=== PATIENT | male | born 1980 | race Caucasian/White ===

== ENCOUNTER 2016-10-28 09:03 | Emergency (ER) | payer BC, OTHER ==
[2016-10-28 09:25] VITALS: BP 144/98
--- NOTE | 2016-10-28 09:30 | UC ---
UC General HPI - HPI Summary HPI Summary: Patient ran out of Lettuce and is worried because he is experiencing sweating from his anus. It is keeping him from work and social events. PCP closed the office and he is in search of new provider. this has been going on for 2 weeks, - History of Current Complaint Stated Complaint: MED REFILL,SWEATINESS Time Seen by Provider: 10/28/16 09:10 Hx Obtained From: Patient Onset/Duration: Sudden Onset, Lasting Weeks Timing: Constant Onset Severity: Mild Current Severity: Mild - Allergy/Home Medications Allergies/Adverse Reactions: Allergies Allergy/AdvReac Type Severity Reaction Status Date / Time No Known Allergies Allergy Verified 11/17/12 07:33 PMH/Surg Hx/FS Hx/Imm Hx Previously Healthy: Yes Endocrine History Of: Denies: Diabetes Cardiovascular History Of: Denies: Cardiac Disorders Respiratory History Of: Denies: Asthma - Surgical History Surgical History: Yes Surgery Procedure, Year, and Place: Appendectomy - Family History Known Family History: Positive: Other - anxiety - Social History Substance Use Type: Marijuana Review of Systems Constitutional: Negative Skin: Other - excessive sweating around his anus Eyes: Negative ENT: Negative Respiratory: Negative Cardiovascular: Negative Gastrointestinal: Negative Genitourinary: Negative Motor: Negative Neurovascular: Negative Musculoskeletal: Negative Neurological: Negative Psychological: Anxious All Other Systems Reviewed And Are Negative: Yes Physical Exam Triage Information Reviewed: Yes Appearance: Well-Appearing, No Pain Distress, Well-Nourished, Other: - anxious Vital Signs Reviewed: Yes Eye Exam: Normal Eyes: Positive: Conjunctiva Clear ENT Exam: Normal ENT: Positive: Normal ENT inspection, Hearing grossly normal, Pharynx normal, TMs normal Dental Exam: Normal Neck exam: Normal Neck: Positive: Supple, Nontender, No Lymphadenopathy Respiratory Exam: Normal Respiratory: Positive: Chest non-tender, Lungs clear, Normal breath sounds Cardiovascular Exam: Normal Cardiovascular: Positive: RRR, No Murmur, Pulses Normal Abdominal Exam: Normal Abdomen Description: Positive: Nontender, No Organomegaly, Soft Bowel Sounds: Positive: Present Musculoskeletal Exam: Normal Musculoskeletal: Positive: Strength Intact, ROM Intact, No Edema Neurological Exam: Normal Neurological: Positive: Alert, Muscle Tone Normal Psychological: Positive: Other: - patient is anxious and is very concerned that he may have something going on due to his sweating Skin Exam: Normal - no breakdown of skin noted, no redness or swelling Course/Dx - Course Course Of Treatment: hx obtained, exam performed, meds reviewed, prescribed refill for lexapro as well as list of PCP to call. Educated on ways to manage his discomfort. - Differential Dx - Multi-Symptom Provider Diagnoses: anxiety. diaphoresis Discharge - Discharge Plan Condition: Stable Disposition: HOME Prescriptions: Escitalopram (NF) [Lexapro (NF)] 10 mg PO BEDTIME #30 tab Patient Education Materials: Anxiety (ED) Additional Instructions: Resume your lexapro tonight. If your sweating continues I encourage you to try tucks pads for cooling, they can be applied directly to the rectum. Stay hydrated with increased fluids.
== END 2016-10-28 10:00 | disposition home or self-care (01) ==
LOC: UCCORT 09:03
DX: F41.9 Anxiety disorder, unspecified (principal); R61 Generalized hyperhidrosis; Z76.0 Encounter for issue of repeat prescription; F12.90 Cannabis use, unspecified, uncomplicated
CPT/HCPCS: 99201; G0463

== ENCOUNTER 2017-08-12 17:38 | Emergency (ER) | payer OTHER ==
--- NOTE | 2017-08-12 18:39 | UC ---
FLU HPI - HPI Summary HPI Summary: 36 YEAR OLD MALE PRESENTS WITH COMPLAINS OF SOFT TISSUE SWELLING UNDER LEFT AXILLA. ON A SIDE NOTE HE ALSO DISCUSSED HIS FEAR OF SMELLING. - History of Current Complaint Stated Complaint: FATIGUE Time Seen by Provider: 08/12/17 18:38 Hx Obtained From: Patient Onset/Duration: Lasting Weeks Severity Currently: Moderate Severity Initially: Moderate Associated Signs & Symptoms: Positive: Negative - Allergy/Home Medications Allergies/Adverse Reactions: Allergies Allergy/AdvReac Type Severity Reaction Status Date / Time No Known Allergies Allergy Verified 08/12/17 18:44 Home Medications: Home Medications Linaclotide [Linzess] 72 mcg PO DAILY 08/12/17 [History Confirmed 08/12/17] PMH/Surg Hx/FS Hx/Imm Hx Previously Healthy: Yes - Surgical History Surgical History: Yes Surgery Procedure, Year, and Place: Appendectomy - Family History Known Family History: Positive: Other - anxiety - Social History Alcohol Use: None Substance Use Type: Marijuana Substance Use Comment - Amount & Last Used: Occasional Smoking Status (MU): Heavy Every Day Tobacco Smoker Amount Used/How Often: 1 pack per day Length of Time of Smoking/Using Tobacco: started 26yrs old Have You Smoked in the Last Year: Yes Review of Systems Constitutional: Negative Skin: Other - SOFT TISSUE SWELLING UNDER LEFT ARM Eyes: Negative ENT: Negative Respiratory: Negative Cardiovascular: Negative Gastrointestinal: Negative Genitourinary: Negative Motor: Negative Neurovascular: Negative Musculoskeletal: Negative Neurological: Negative Psychological: Negative All Other Systems Reviewed And Are Negative: Yes Physical Exam Triage Information Reviewed: Yes Vital Signs Reviewed: Yes Eye Exam: Normal ENT Exam: Normal Dental Exam: Normal Neck exam: Normal Neck: Positive: 1 Respiratory Exam: Normal Cardiovascular Exam: Normal Abdominal Exam: Normal Musculoskeletal Exam: Normal Neurological Exam: Normal Psychological Exam: Normal Skin: Positive: Other - SOFT TISSUE SWELLING UNDER LEFT ARM Flu Course/Dx - Differential Dx/Diagnosis Provider Diagnoses: FATIGUE. LEFT AXILLA SOFT TISSUE MASS Discharge - Discharge Plan Condition: Stable Disposition: HOME Patient Education Materials: Lymphadenopathy (ED) Forms: *Work Release Referrals: Halley Michelle [Medical Doctor] - No Primary Care Phys,NOPJOHN [Medical Doctor] -
[2017-08-12 18:44] VITALS: BP 149/97
== END 2017-08-12 19:58 | disposition home or self-care (01) ==
LOC: UCCORT 17:38
DX: R53.83 Other fatigue (principal); R22.9 Localized swelling, mass and lump, unspecified; F17.210 Nicotine dependence, cigarettes, uncomplicated
CPT/HCPCS: 99211; G0463

== ENCOUNTER 2018-04-15 09:27 | Emergency (ER) | payer OTHER ==
[2018-04-15 09:59] VITALS: BP 143/94
--- NOTE | 2018-04-15 10:18 | UC ---
Ear Complaint HPI - HPI Summary HPI Summary: Patient presents with decreased hearing from his right ear that he presumes a cerumen impaction. Patient has had similar problems before. Last irrigation was approximately 2 years ago. Patient works in a factory and wears earplugs. Patient states he knows his pushes the wax in. Patient denies any pain. No sinus pain no sore throat. Patient states he just cannot hear out of his right ear. Patient's medications reviewed this visit - History of Current Complaint Chief Complaint: UCEar Stated Complaint: RIGHT EAR COMPLAINT Time Seen by Provider: 04/15/18 10:13 Hx Obtained From: Patient Onset/Duration: Gradual Onset Severity Currently: None Pain Intensity: 0 - Allergies/Home Medications Allergies/Adverse Reactions: Allergies Allergy/AdvReac Type Severity Reaction Status Date / Time No Known Allergies Allergy Verified 08/12/17 18:44 PMH/Surg Hx/FS Hx/Imm Hx Previously Healthy: Yes - Surgical History Surgical History: Yes Surgery Procedure, Year, and Place: Appendectomy - Family History Known Family History: Positive: Other - anxiety - Social History Occupation: Employed Full-time Lives: With Family Alcohol Use: None Substance Use Type: Marijuana Substance Use Comment - Amount & Last Used: Occasional Smoking Status (MU): Heavy Every Day Tobacco Smoker Amount Used/How Often: 1 pack per day Length of Time of Smoking/Using Tobacco: started 26yrs old Have You Smoked in the Last Year: Yes Review of Systems ENT: Other - Decreased hearing right ear All Other Systems Reviewed And Are Negative: Yes Physical Exam - Summary Physical Exam Summary: Vital Signs Reviewed: Yes A+Ox3, no distress Eyes: Conjunctiva Clear, RADNALL. EOM intact and full ENT: Hearing grossly normal TM x 2 obscured by copious firm cerumen unable to visualize TM. mmoist, uvula midline, no exudate, no erythema Neck: Positive: Supple Respiratory: Positive: No respiratory distress, No accessory muscle use + CTA throughout no w/r Cardiovascular: RRR nl s1, s2 no m/r Musculoskeletal Exam: MAGDALENO x 4 without difficulty Strength Intact, ROM Intact Neurological: Positive: Alert, + sensation throughout Psychological: Positive: Normal Response To Family is Triage Information Reviewed: Yes Vital Signs: Initial Vital Signs Temp 98.3 F 04/15/18 09:53 Pulse 74 04/15/18 09:53 Resp 14 04/15/18 09:53 BP 143/94 04/15/18 09:53 Pulse Ox 99 04/15/18 09:53 Re-Evaluation - Re-Evaluation First Eval Change: Improved - Following combination of both irrigation as well as curette removal both canals free of cerumen. TMs visualized and intact. No concern for infection. Recommend patient use earmuffs hearing protection as opposed to earplugs. Recommend patient use prescription Debrox 3 times a day. Patient also encourages [id number] products for a wax removal. Patient encouraged to return with any questions or concerns. Patient states comfort agreement with plan. Patient's blood pressure was mildly elevated recommend follow-up with his primary Ear Complaint Course/Dx - Course Course Of Treatment: Patient with significant cerumen impaction bilateral ears. Unable to visualize tympanic membrane on either side. We'll irrigate with hydroperoxide. Unable to manually remove. Patient comfortable in agreement with plan. - Differential Dx/Diagnosis Provider Diagnoses: Cerumen impaction bilaterally Discharge - Sign-Out/Discharge Documenting (check all that apply): Patient Departure All imaging exams completed and their final reports reviewed: No Studies - Discharge Plan Condition: Stable Disposition: HOME Prescriptions: Carbamide Peroxide 6.5% OTIC* [DEBROX 6.5% Otic*] 5 drop BOTH EARS EVERY OTHER DAY #1 bottle Patient Education Materials: Cerumen Impaction (ED) Referrals: Do Bhagat MD [Primary Care Provider] - Additional Instructions: Use ear softening drops 3 times a week starting next week consider switching to ear muffs as opposed to ear plugs for hearing protection at work Consider scheduling appointments every 6-8 weeks for ear flushing Okay to trial over the counter ear flushing kits for the shower use contact your doctor or return here with questions or concerns - Billing Disposition and Condition Condition: STABLE Disposition: Home
== END 2018-04-15 11:36 | disposition home or self-care (01) ==
LOC: UCCORT 09:27
DX: H61.23 Impacted cerumen, bilateral (principal); F17.210 Nicotine dependence, cigarettes, uncomplicated
CPT/HCPCS: 99213; G0463

== ENCOUNTER 2019-06-26 20:08 | Emergency (ER) | payer OTHER ==
[2019-06-26 20:20] VITALS: BP 146/78
--- NOTE | 2019-06-26 20:45 | UC ---
Skin Complaint HPI - HPI Summary HPI Summary: for past 3 months, lump on left chin area, states losing weight recently. Concerned with tonsils - History of Current Complaint Chief Complaint: UCGeneralIllness Time Seen by Provider: 06/26/19 20:32 Stated Complaint: THROAT COMPLAINT Hx Obtained From: Patient Onset/Duration: Sudden Onset, Lasting Weeks Skin Exposure Onset/Duration: Weeks Ago Timing: Constant Onset Severity: Mild Current Severity: Mild Pain Intensity: 1 Character: Raised - Allergy/Home Medications Allergies/Adverse Reactions: Allergies Allergy/AdvReac Type Severity Reaction Status Date / Time No Known Allergies Allergy Verified 06/26/19 20:20 Home Medications: Home Medications NK [No Home Medications Reported] 06/26/19 [History Confirmed 06/26/19] PMH/Surg Hx/FS Hx/Imm Hx Previously Healthy: Yes - Surgical History Surgical History: Yes Surgery Procedure, Year, and Place: Appendectomy - Family History Known Family History: Positive: Other - anxiety - Social History Alcohol Use: None Substance Use Type: Marijuana Substance Use Comment - Amount & Last Used: Occasional Smoking Status (MU): Heavy Every Day Tobacco Smoker Amount Used/How Often: 1 pack per day Length of Time of Smoking/Using Tobacco: started 26yrs old Have You Smoked in the Last Year: Yes Review of Systems All Other Systems Reviewed And Are Negative: Yes Skin: Positive: Other - cyst Is Patient Immunocompromised?: No Physical Exam Triage Information Reviewed: Yes Appearance: Well-Appearing, Well-Nourished, Pain Distress Vital Signs: Initial Vital Signs Temp 98.8 F 06/26/19 20:14 Pulse 77 06/26/19 20:14 Resp 16 06/26/19 20:14 BP 146/78 06/26/19 20:14 Pulse Ox 99 06/26/19 20:14 Vital Signs Reviewed: Yes Eye Exam: Normal ENT Exam: Normal ENT: Positive: Pharynx normal, TMs normal Dental Exam: Normal Neck: Positive: Other: - mild lymphadenopathy on right side. dermal cyst noted on left side Respiratory Exam: Normal Cardiovascular Exam: Normal Abdominal Exam: Normal Bowel Sounds: Positive: Present Musculoskeletal Exam: Normal Neurological Exam: Normal Psychological Exam: Normal Skin Exam: Normal Course/Dx - Course Course Of Treatment: hx obtained, exam performed, meds reviewed, conversed with Dr Cox, who also looked at the area and agreed with course of action. - Diagnoses Provider Diagnosis: Cyst of neck Discharge ED - Sign-Out/Discharge Documenting (check all that apply): Patient Departure All imaging exams completed and their final reports reviewed: No Studies - Discharge Plan Condition: Stable Disposition: HOME Referrals: No Primary Care Phys,NOPCP [Primary Care Provider] - Helio Colon MD [Medical Doctor] - Additional Instructions: 1. do to the length of time the cyst has been there. I am going to refer you to ENT for follow up. 2. It does not appear to be characteristic of cancer. - Billing Disposition and Condition Condition: STABLE Disposition: Home
== END 2019-06-26 20:51 | disposition home or self-care (01) ==
LOC: UCCORT 20:08
DX: L72.9 Follicular cyst of the skin and subcutaneous tissue, unspecified (principal); F17.210 Nicotine dependence, cigarettes, uncomplicated
CPT/HCPCS: 99211; G0463